=== PATIENT | female | born 2000 | race Two or more races ===

== ENCOUNTER 2023-05-18 07:23 | Emergency (ER) | payer MEDICAID ==
[~2023-05-18] VITALS: Ht 167.6 cm; Wt 71.0 kg
[2023-05-18 07:50] VITALS: BP 125/65; PULSE 72; RESP 16; TEMP 97.2; O2SAT 98
[2023-05-18] MEDS ORDERED: IBUP1TAB5 PO (09:01)
== END 2023-05-18 09:07 | disposition home or self-care (01) ==
LOC: ER 07:23
DX: M25.552 Pain in left hip (principal)
CPT/HCPCS: 73502

== ENCOUNTER 2023-08-31 03:18 | Emergency (ER) | payer MEDICAID ==
[~2023-08-31] VITALS: Ht 167.6 cm; Wt 72.9 kg
[~2023-08-31 03:18] MED LIST: IBUP1TAB5 PO
[2023-08-31] MEDS: DexAMETHasone SOD PHOS 10MG/1ML VIAL INJ IM ONE (04:38)
[2023-08-31] MEDS: diphenhdrAMINE HCL 50 MG/1 ML VL IM ONE (04:38)
[2023-08-31 04:45] VITALS: BP 99/68; PULSE 81; RESP 16; TEMP 98.3; O2SAT 98
== END 2023-08-31 05:06 | disposition home or self-care (01) ==
LOC: ER 03:18
DX: T78.40XA Allergy, unspecified, initial encounter (principal); X58.XXXA Exposure to other specified factors, initial encounter
CPT/HCPCS: 96372; 99284; J1100; J1200

== ENCOUNTER 2023-08-31 18:17 | Emergency (ER) | payer MEDICAID ==
[~2023-08-31] VITALS: Ht 167.6 cm; Wt 72.7 kg
[2023-08-31 18:38] VITALS: BP 109/70; PULSE 81; RESP 18; O2SAT 97
== END 2023-09-01 00:42 | disposition left against medical advice (07) ==
LOC: ER 18:17
DX: R21 Rash and other nonspecific skin eruption (principal); L29.9 Pruritus, unspecified; Z53.21 Procedure and treatment not carried out due to patient leaving prior to being seen by health care provider